=== PATIENT | female | born 1980 | race Native Hawaiian/Other Pacific Islander ===

== ENCOUNTER 2018-10-20 13:24 | Outpatient (CLI) | payer OTHER ==
[2018-10-20] MEDS ORDERED: LEVO0.0218 PO (13:36)
== END 2018-10-20 13:27 | disposition short-term general hospital (02) ==
LOC: AMB 13:24
DX: T17.228A Food in pharynx causing other injury, initial encounter (principal)
CPT/HCPCS: A0425; A0427

== ENCOUNTER 2018-10-20 13:30 | Emergency (ER) | payer OTHER ==
[~2018-10-20] VITALS: Ht 162.6 cm; Wt 97.5 kg
[2018-10-20 13:30] VITALS: TEMP 97.2
[2018-10-20] MEDS ORDERED: LEVO0.0218 PO (13:36)
[2018-10-20 15:56] VITALS: BP 128/82
== END 2018-10-20 15:58 | disposition short-term general hospital (02) ==
LOC: ED 13:30
DX: T17.228A Food in pharynx causing other injury, initial encounter (principal)
CPT/HCPCS: 96374; 96375; 99284; J1610; J2405

== ENCOUNTER 2023-01-13 12:43 | Emergency (ER) | payer OTHER ==
[~2023-01-13] VITALS: Ht 162.6 cm; Wt 99.8 kg
[~2023-01-13 12:43] MED LIST: LEVO0.0218 PO
[2023-01-13 14:30] VITALS: BP 116/71; TEMP 98.5
== END 2023-01-13 14:30 | disposition home or self-care (01) ==
LOC: ED 12:43
DX: S93.492A Sprain of other ligament of left ankle, initial encounter (principal); X50.1XXA Overexertion from prolonged static or awkward postures, initial encounter; Y92.89 Other specified places as the place of occurrence of the external cause
CPT/HCPCS: 96372; 99283; J1885